=== PATIENT | female | born 1955 | race Hispanic/Latino ===

== ENCOUNTER 2022-06-10 10:04 | Day surgery (SDC) | payer MEDICARE ==
[~2022-06-10] VITALS: Ht 152.4 cm; Wt 83.0 kg
[~2022-06-10 10:04] MED LIST: ASPIRIN 81 LOW81 MG PO; LOSARTAN POTASS25 MG PO; ROSUVASTATIN CA20 MG PO
[2022-06-10 13:35] VITALS: BP 159/63
== END 2022-06-10 13:15 | disposition home or self-care (01) ==
LOC: ENDO 10:04 → ORM 11:15 → ENDO 13:15
PROVIDERS: ATTEND Surgery
PROC: 0DBN8ZX Excision of Sigmoid Colon, Via Natural or Artificial Opening Endoscopic, Diagnostic (ICD-10-PCS; principal; 2022-06-10)
DX: D12.5 Benign neoplasm of sigmoid colon (principal); K57.30 Diverticulosis of large intestine without perforation or abscess without bleeding; K64.8 Other hemorrhoids; I10 Essential (primary) hypertension